=== PATIENT | female | born 2000 | race Caucasian/White ===

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

== ENCOUNTER 2022-11-01 13:00 | Outpatient (RCR) | payer BC, SELFPAY ==
--- NOTE | 2022-09-29 08:21 | HP.OTEVAL ---
Patient's Visit Information NAFISA BARKER is a 22 year old F, referred to Occupational Therapy by Dr. Teresa Hyde MD, with a diagnosis of dx of radial styloid tenosynovitis ( DeQuervain) with laceration of IF. Date of Evaluation: 09/28/22 Occupational Therapist: Yisel Ibrahim, OTR/Efrem, CHT - Subjective This 22 year old female was seen for OT eval with dx of radial styloid tenosynovitis ( DeQuervain's) with laceration of IF. Pt states for at least 6 months she suffered with pain of left wrist ( initiated following the of her son now 15 months old 23#) pt states she was initially casted 2021 and was in for about 6 weeks and she went to cut the cast of because she was worried after getting juice in her cast she would get an infection. pt then had to have sx to repair flexor muscle and digital nerve of her left IF. Pt is s/p 3 weeks and 2 days from left IF digital nerve repair and left DeQuervain's release. Since pts procedure she has not been able to use her left UE for ADLs and IADLs. pt would like to return to her PLOF. - Pain left wrist/ left IF 4 Pain Intensity Range: 3, 8 - ROM Wrist: right 65/80 left 35/50 CMC: right 10 left 5 MP: right 65 left 60 IP: right 70 left 35 MP: right +10/90 left 0/70 PIP: right +20/115 left -10/60 DIP: right 0/ 65 left 0/20 ROM Comments: left RD 10* UD 10*. right RD 15* UD 30* - Strength Apartment Maintenance Worker: right 60# left NT Lateral Pinch: right 10# left NT Tripod Pinch: right 10# left NT - Sensation Index: right 2.83 left 3.61 radial side of IF PIP region - Quick DASH-Disab of Arm,Shoulder& Hand Quick DASH Score: 61.3625 - Goals Goal:100% adherence to protocol: Yes Goal:Daily scar massage when approriate: Yes Goal:ROM equal to unaffected hand: Yes Goal:Apartment Maintenance Worker/Pinch strength at least 75% of unaffected hand: Yes Goal:No pain with affected hand use: Yes Goal:Full use of affected hand in daily activities including: Yes Goal:Improvement in sensation documented by Ennice-Angelia: Yes Goal:Decrease scar hypersensitivity: Yes - Rehabilitation General Assessment: Pt is s/p 3 weeks and 2 days from left IF digital nerve repair and left DeQuervain's release. pt demo with newly healing sturctures and has limited use of left UE to perform her ADLs and IADls. Pt would benefit from skilled OT services 1-2x week for 6 weeks to regain ROM, strength and mtg. scars to return to her PLOF. Today therapist ed. pt on AROM, scar mtg and healing of nerve along with dx and recovery form DeQuervain's release. pt demo understanding and agree to POC. Rehabilitation Potential: Good - Anticipated Interventions A/AAROM/PROM, Scar Care, Triggerpoint Release, Desensitization, Sensory Retraining, Modalities, Orthoses, Fine Motor Coord/Zeb, Sensory Stimulation, Education re assistive Equipment, Education re Diagnosis, Caregiver Training, Home Program - Visit Plan Frequency: 1-2x /Week Duration: 4-6 Weeks TEXT: Thank you for the opportunity to evaluate your patient. For Medicare and Medicare HMO plans, please review the plan of care and approve it. It will need to be FAXED BACK to us at [phone] for Medicare purposes. Please let me know if there are questions or concerns regarding this plan of care. Physician Signature: Date:
--- NOTE | 2022-12-20 15:04 | HP.OT.NRP ---
NAFISA BARKER was seen in my office for initial evaluation on 09/28/22. The following Plan of Care was established for this patient: Initial Frequency: 1-2x /Week Initial Duration: 4-6 Weeks Plan: Cont POC Anticipated Interventions: A/AAROM/PROM, Scar Care, Triggerpoint Release, Desensitization, Sensory Retraining, Modalities, Orthoses, Fine Motor Coord/Zeb, Sensory Stimulation, Education re assistive Equipment, Education re Diagnosis, Caregiver Training, Home Program This patient was last seen in our office 11/01/22. Pertinent comments regarding their Occupational therapy will appear below: pt was seen for 4 OT sessions and made some gains during session- no further apts have been scheduled and due to time lapse in services pt d.c. At this point I will be discontinuing this patient from occupational therapy. I would be happy to see this patient again in the future if found appropriate by the physician. Thank you! Yisel Ibrahim, OTR/L, CHT
== END 2022-11-01 19:00 | disposition home or self-care (01) ==
LOC: OT 13:00
PROVIDERS: PCP Registered Nurse; Referring Provider Orthopaedic Surgery Hand Surgery; Visit Provider Orthopaedic Surgery Hand Surgery
DX: S56.129D Laceration of flexor muscle, fascia and tendon of unspecified finger at forearm level, subsequent encounter; S64.40XD Injury of digital nerve of unspecified finger, subsequent encounter; M65.4 Radial styloid tenosynovitis [de Quervain]
CPT/HCPCS: 97035; 97110; 97140; 97166; 97530

== ENCOUNTER 2023-03-20 16:32 | Emergency (ER) | payer BC, SELFPAY ==
[2023-03-20 16:33] VITALS: BP 122/58; PULSE 87; RESP 16; TEMP 36.9; O2SAT 99; BMI 24.4
--- NOTE | 2023-03-20 17:00 | EX.ED.DYSGE1 ---
HPI History of Present Illness Chief Complaint: Complaint Informant: patient Narrative Narrative: Patient presents with UTI symptoms of dysuria, frequency, urgency. She states that she has had frequent urinary tract infections since she was a teenager. She admits to being on multiple antibiotics recently but states she has difficulty remembering to take them regularly. She states he was also recently treated for chlamydia but vomited up the antibiotics. She is currently on another round of treatment for that. She states that her COMBINATION OPERATOR, Dr. Stewart, asked her to come to the emergency room for IV antibiotics for her UTI. I advised the patient that I could check her urine now and give her a single dose of antibiotics, however to treat a UTI she would need to be set up for daily infusions at the infusion center. Those arrangements will need to be made by her COMBINATION OPERATOR. Patient does report some chills along with suprapubic and back pain. [facility] Medical History delivery delivered Home Medications hydroxyzine pamoate 50 mg capsule 50 mg PO BID PRN PRN Anxiety 10/09/19 [History Last Taken Unknown] prednisone 5 mg tablets in a dose pack 5 mg PO DAILY 08/04/22 [History Last Taken Unknown] ciprofloxacin HCl 500 mg tablet (Cipro) 500 mg PO BID #6 tabs 03/20/23 [Rx Last Taken Unknown] Allergy/AdvReac Type Severity Reaction Status Date / Time cephalexin [From Keflex] Allergy Anaphylaxis Verified 03/20/23 16:36 Penicillins Allergy Anaphylaxis Verified 03/20/23 16:36 Sulfa (Sulfonamide Allergy Rash Verified 03/20/23 16:36 Antibiotics) Social History Smoking Status: Current every day smoker tobacco type: cigarettes and e-cigarettes ROS ROS ED Constitutional Constitutional ED: Reports chills; Denies fever(s) Eyes Eyes: Denies change in vision or discharge from eye(s) ENT ENT ED: Denies discharge from eye(s), rhinorrhea or sore throat Cardiovascular Cardiovascular: Denies chest pain Respiratory/Chest Respiratory/Chest: Denies cough or dyspnea Gastrointestinal Gastrointestinal: Reports abdominal pain; Denies nausea or vomiting Genitourinary Genitourinary ED: Reports dysuria and urinary frequency Musculoskeletal Musculoskeletal: Reports back pain; Denies extremity pain Integumentary Denies Abrasions or rash Neurologic Neurologic: Denies headache(s) or weakness Psychiatric Psychiatric: Denies anxiety or depression Allergic/Immunologic Allergic/Immunologic ED: Denies lip swelling or urticaria EXAM Physical Exam Const Vital Signs: 03/20/23 16:33 Temperature 98.4 F Temperature Source Temporal Pulse Rate 87 Respiratory Rate 16 Blood Pressure 122/58 H Blood Pressure Mean 79 Pulse Ox 99 Oxygen Delivery Method Room Air Positive well nourished and well developed General Appearance ED: well developed HEENT Reports normocephalic and head/scalp atraumatic Eyes PERRL and EOMs intact bilaterally Neck supple Chest Wall inspection of chest normal and palpation of chest normal Resp normal respiratory effort and clear to auscultation bilaterally Cardio regular rate and regular rhythm GI GI Narrative: Mild suprapubic tenderness palpation. No guarding or rebound. Hypoactive bowel sounds. Palpation: soft Extremity normal to inspection Neuro oriented x3 and no sensory deficits noted Sensorium / Orientation: alert Motor Exam: strength 5/5 throughout Psych mental status grossly normal Skin no rashes or lesions noted MDM MDM MDM Narrative Medical decision making narrative: Urinalysis and urine culture sent along with urine test for gonorrhea and chlamydia. I did review patient's prior records. She was seen at [facility] in February where her urine at that time was loaded with white cells but nitrite negative. She was treated with 3 days of Cipro. It appears the patient recently had prescriptions filled for doxycycline and Flagyl to treat chlamydia as well as Zofran to help with nausea. Lab Data Labs: Laboratory Results - last 24 hr 03/20/23 14:40 Urine Color Yellow Urine Clarity Sl. Cloudy Urine pH 6.0 Ur Specific [place] 1.020 Urine Protein 15 H Urine Glucose (UA) Normal Urine Ketones 5 H Urine Occult Blood Negative Urine Nitrite Negative Urine Bilirubin Negative Urine Urobilinogen Normal Ur Leukocyte Esterase 100 H Urine RBC 0 SEEN Urine WBC 0-5 SEEN Ur Squamous Epith Cells 0-5 SEEN Urine Bacteria RARE Urine Mucus 0 SEEN Urine Test Negative Treatment and Re-Evaluation :: Urinalysis today reveals rare bacteria with 0-5 white cells and negative nitrites. Urine culture is pending. She did receive a dose of IV Cipro here. I will write her another prescription for 3 days of Cipro. I will also refer her to Dr. Thurman as she does get very frequent UTIs. I advised her that if her urine culture comes back resistant to Cipro or resistant to oral antibiotics, we will contact her so arrangements could be made for her to receive IV antibiotics or a different antibiotic. She voices understanding and agreement. Discharge Plan Triage Chief Complaint: Complaint ED Provider: Danielle Araujo Dx/Rx/DC Orders Clinical Impression: UTI (urinary tract infection) Instructions: ED Cystitis Female Adult Prescriptions: New ciprofloxacin HCl [Cipro] 500 mg tablet 500 mg PO BID Qty: 6 0RF No Action prednisone 5 mg tablets,dose pack 5 mg PO DAILY hydroxyzine pamoate 50 MG capsule 50 mg PO BID PRN PRN (Reason: Anxiety) Primary Care Provider: Bev Longoria NP Referrals: Lisa Thurman MD [Med Staff - Active Staff] - As soon as possible Mitchell Stewart DO [Non-Staff] - 1 Week if not improving Bev Longoria NP, [employer] SET UP OPERATOR-C [Primary Care Provider] - 1 Week
[2023-03-20 17:03] LABS: Mucous, Urine 0 SEEN /hpf (<or=2+); Red Blood Cells-Urine 0 SEEN /hpf (0-5)
[2023-03-20 17:07] LABS: Color, Urine Yellow (Yellow); Glucose, Dipstick Normal (Normal); Ketone-Dipstick 5 mg/dl (Negative); Leukocyte Esterase-Dipstick 100 /ul (Negative); Nitrite-Dipstick Negative (Negative); Occult Blood-Urine Negative /ul (Negative); Protein-Dipstick 15 mg/dl (Negative); Urine Bilirubin Dipstick Negative (Negative); Urine Clarity Sl. Cloudy (Clear); Urine Urobilinogen Normal (Normal)
[2023-03-20 17:10] LABS: Internal QC Validated? YES +Cl - CLEAR BKGD; Pregnancy, Urine Negative Negative
[2023-03-20 17:18] LABS: Bacteria RARE /hpf (None Seen); Squamous Epithelial Cells - UA 0-5 SEEN /hpf (5-10); White Blood Cells 0-5 SEEN /hpf (0-5)
[2023-03-20] MEDS: Ciprofloxacin 400 MG/200 ML BAG 200 MG IV (18:05)
[2023-03-23 00:07] LABS: Chlamydia By Nucleic Acid AMP Negative (Negative); Gonococcus By Nucleic Acid AMP Negative (Negative)
== END 2023-03-20 19:08 | disposition home or self-care (01) ==
PROVIDERS: Emergency Provider Emergency Medicine; PCP Registered Nurse; Visit Provider Emergency Medicine
DX: N39.0 Urinary tract infection, site not specified (principal); F17.210 Nicotine dependence, cigarettes, uncomplicated; R30.0 Dysuria; R35.0 Frequency of micturition; R39.15 Urgency of urination; Z87.440 Personal history of urinary (tract) infections; F17.290 Nicotine dependence, other tobacco product, uncomplicated
CPT/HCPCS: 81001; 81025; 87077; 87086; 87088; 87491; 87591; 96365; 99282; A4216; J0744

== ENCOUNTER → 2023-05-09 | Outpatient (CLI) | payer BC, SELFPAY ==
--- NOTE | 2023-05-09 15:08 | US_ITS ---
EXAM: US RETROPERITONEAL LIMITED, RENAL CLINICAL INDICATION: UTI TECHNIQUE: Limited grayscale and color Doppler sonographic evaluation of the retroperitoneum was performed. COMPARISON: No relevant prior studies available. FINDINGS: RIGHT KIDNEY: Right kidney measures 10.8 x 3.4 x 5.3 cm in diameter. Normal cortical thickness and echogenicity. No renal parenchymal scars. No perfusion defects to indicate acute pyelonephritis. No hydronephrosis. No shadowing calculus. No focal lesion. No perinephric collection is demonstrated. LEFT KIDNEY: Left kidney measures 10.1 x 4 x 5.2 cm in diameter. Normal cortical thickness and echogenicity. No renal cortical scars. No perfusion defects are identified indicating acute pyelonephritis. Minimal fullness of the left intrarenal collecting system. No shadowing calculus. No focal lesion. No perinephric collection is demonstrated. URINARY BLADDER: Partially distended urinary bladder is unremarkable. Urinary bladder wall measures 3.9 mm in thickness. Bilateral ureteral jets were noted. No cellular debris is seen within the bladder to indicate cystitis. OTHER: Normal-sized spleen measuring 10.6 cm in length. Visualized portions of the gallbladder unremarkable. US/Kidney and Bladder IMPRESSION: Minimal left hydronephrosis. Otherwise negative. Normal size kidneys. No findings of acute pyelonephritis or renal cortical scarring identified. Electronically Signed: Phillip Mayfield MD at 1:37 EDT ,
== END | disposition home or self-care (01) ==
LOC: US 15:07
PROVIDERS: PCP Registered Nurse; Referring Provider Urology; Visit Provider Urology
DX: N39.0 Urinary tract infection, site not specified (principal)
CPT/HCPCS: 76770